=== PATIENT | female | born 1985 | race Two or more races ===

== ENCOUNTER 2023-04-12 22:53 | Emergency (ER) | payer MEDICAID | END 2023-04-12 23:47 | disposition home or self-care (01) | LOC: ER 23:08 | DX: Z53.21 Procedure and treatment not carried out due to patient leaving prior to being seen by health care provider (principal) ==

== ENCOUNTER 2024-08-22 20:00 | Emergency (ER) | payer MEDICAID ==
[~2024-08-22] VITALS: Ht 157.5 cm; Wt 68.0 kg
[2024-08-22] MEDS ORDERED: NAPR-1164 PO (20:09)
[2024-08-22] MEDS ORDERED: AMOX-430 PO (20:09)
[2024-08-22 20:15] VITALS: BP 156/85; TEMP 98.1; O2SAT 98
== END 2024-08-22 20:44 | disposition home or self-care (01) ==
LOC: ER 20:14
DX: G89.29 Other chronic pain (principal); K02.9 Dental caries, unspecified; Z87.442 Personal history of urinary calculi